=== PATIENT | male | born 1955 | race Caucasian/White ===

== ENCOUNTER → 2019-06-21 | Outpatient (CLI) | payer BC, MEDICARE ==
[~2019-06-21] MED LIST: ASPI81TA85 PO; CALC1TAB63 PO; CALC600T18 PO; CVS50CAP PO; DEXA4TA PO; FLUC10TA PO; GNP8.6TA PO; REVL5CAP2 PO; ROCA0.25 PO; VALA500T5 PO; VELC3.5I IM; VITA1CAP25 PO
--- NOTE | 2019-06-22 09:20 | REP ---
DUPLEX DOPPLER ULTRASOUND BILATERAL UPPER EXTREMITY ARTERIAL AND VENOUS SYSTEMS FOR AV FISTULA MAPPING: Real-time sonographic and duplex Doppler interrogation of bilateral upper extremity arterial and venous systems is performed to map these vessels for AV fistula. No deep vein thrombosis is seen bilaterally. On the right basilic vein measures 7 mm at the upper humerus, 4 mm at the lower humerus, 3 mm in the upper forearm and 1 mm in the lower forearm and wrist. Median cubital vein measures 4 mm. Cephalic vein measures 3 mm at the level of the humerus, 2 mm in the upper forearm and 1 mm in the lower forearm and wrist. Normal flow velocities are seen in the arterial structures of the right upper extremity with triphasic waveforms. The right axillary and brachial arteries measure 5 mm and the radial and ulnar arteries measure 3 mm. On the left the basilic vein measures 6 mm at the upper humerus, 3 mm at the lower humerus, and 1 mm in the upper and lower forearm. Median cubital vein measures 2 mm. Cephalic vein measures 1 mm at the level of the humerus and is not seen in the forearm. Left upper extremity arterial structures demonstrate normal flow velocities with triphasic waveforms. Left axillary artery measures 7 mm, brachial artery 5 mm and the radial and ulnar arteries measure 2 mm. Electronically Signed by Frank Haque MD 06/22/2019 07:16 P
== END ==
LOC: M RAD 12:06
PROVIDERS: ATTEND Surgery Vascular Surgery
DX: Z01.818 Encounter for other preprocedural examination (principal); N18.6 End stage renal disease

== ENCOUNTER 2019-06-25 06:14 | Day surgery (SDC) | payer BC, MEDICARE ==
[~2019-06-25] VITALS: Ht 190.5 cm; Wt 93.0 kg
[2019-06-25] MEDS ORDERED: LR 1,000 ML IV ONE (07:00)
[2019-06-25] MEDS ORDERED: ONDANSETRON 4MG/2ML VIAL (J2405) As Ordered ONE (07:01)
[2019-06-25] MEDS ORDERED: LIDOCAINE 2% INJ 100 MG/5 ML SDV (FOR ANES.) As Ordered ONE (07:01)
[2019-06-25] MEDS ORDERED: dexameTHASONE 4 MG/ML 1ML VIAL (J1100) As Ordered ONE (07:01)
[2019-06-25] MEDS ORDERED: PROPOFOL 200 MG/20 ML VIAL As Ordered ONE (07:01)
[2019-06-25] MEDS ORDERED: MIDAZOLAM INJ 2 MG/2 ML VIAL (J2250) As Ordered ONE (07:02)
[2019-06-25] MEDS ORDERED: fentaNYL 100 MCG/2 ML INJECTION (J3010) As Ordered ONE (07:02)
[2019-06-25] MEDS ORDERED: PROPOFOL 500 MG/50 ML VIAL As Ordered ONE (07:02)
[2019-06-25] MEDS ORDERED: LIDOCAINE 2% MDV 20 ML VIAL As Ordered ONE (07:12)
[2019-06-25] MEDS ORDERED: BUPIVACAINE HCL 0.25% 10 ML VIAL As Ordered ONE (07:12)
[2019-06-25] MEDS ORDERED: HEPARIN SOD (PORCINE) 5000 UNITS/ML VIAL As Ordered ONE (07:12)
[2019-06-25] MEDS ORDERED: BUPIVACAINE HCL 0.5% 10 ML VIAL As Ordered ONE (07:43)
[2019-06-25] MEDS ORDERED: ePHEDrine SULFATE 25 MG/5 ML(5MG/ML) SYRINGE As Ordered ONE (08:08)
[2019-06-25 09:15] VITALS: BP 131/95
[2019-06-25] MEDS ORDERED: PERCOCET 5MG/325MG TAB PO PRN (09:15)
[2019-06-25] MEDS ORDERED: fentaNYL 100 MCG/2 ML INJECTION (J3010) IV PRN (09:15)
[2019-06-25] MEDS ORDERED: METOCLOPRAMIDE INJ 10MG/2ML VIAL (J2765) IV PRN (09:15)
[2019-06-25] MEDS ORDERED: ONDANSETRON 4MG/2ML VIAL (J2405) IV PRN (09:15)
[2019-06-25] MEDS ORDERED: NS 1,000 ML IV SCH (09:15)
--- NOTE | 2019-07-02 08:28 | RO ---
DATE OF PROCEDURE: 06/25/2019 ATTENDING SURGEON: Dr. Chase Sparks [facility]CO MACHINE OPERATOR: None. PREOPERATIVE DIAGNOSES: Chronic renal insufficiency nearing end-stage renal disease, multiple myeloma. POSTOPERATIVE DIAGNOSES: Chronic renal insufficiency nearing end-stage renal disease, multiple myeloma. PROCEDURE: Right brachiocephalic arteriovenous fistula creation. INDICATION: The patient is a 63-year-old male with multiple myeloma resulting in acute renal failure who required hemodialysis but is now no longer on hemodialysis. The patient also had placement of a peritoneal dialysis catheter, which became infected with fungal peritonitis. The patient had the peritoneal dialysis catheter removed and now requires access for possible future hemodialysis. ANESTHESIA: Local monitored anesthesia care (MAC). ESTIMATED BLOOD LOSS: 20 mL. IV FLUIDS: 200 mL. HEPARIN: None. COMPLICATIONS: None. DRAINS: None. SPECIMENS: None. IMPLANTS: None. PROCEDURE: The patient was taken to the operating room, placed supine on the operating room table, and then prepped and draped in a standard surgical fashion. An incision was made at the right antecubital fossa transversely. The brachial artery and cephalic vein were identified, sharply dissected free. The cephalic vein was transected as far distal as possible and anastomosed to the brachial artery in an end-to-side fashion using #6-0 Prolene suture. There was good flow in the fistula at the completion of the anastomosis. Hemostasis was obtained, after which, the incision was closed using #3-0 Monocryl to approximate the skin in a running subcuticular fashion. Steri-Strips and dressings were applied. The patient tolerated procedure well. All instrument, sponge, and needle counts were correct at the end of the case. There were no complications. Dr. Sparks was present for and directed the entire case. The patient was transferred to the recovery area and subsequently discharged in stable condition.
== END 2019-06-25 09:30 | disposition home or self-care (01) ==
LOC: M SDC 06:14
PROVIDERS: ATTEND Surgery Vascular Surgery
DX: N18.5 Chronic kidney disease, stage 5 (principal); C90.00 Multiple myeloma not having achieved remission; D63.8 Anemia in other chronic diseases classified elsewhere; E83.51 Hypocalcemia; E55.9 Vitamin D deficiency, unspecified; Z92.21 Personal history of antineoplastic chemotherapy; Z79.899 Other long term (current) drug therapy; Z79.82 Long term (current) use of aspirin
CPT/HCPCS: 36415; 36821; 84132; J1100; J2250; J2405; J3010